=== PATIENT | female | born 1940 | race Hispanic/Latino ===

== ENCOUNTER 2016-11-24 06:45 | Day surgery (SDC) | payer MEDICARE, OTHER ==
[2016-11-18 15:26] VITALS: BMI 35.3
[2016-11-24] MEDS ORDERED: Lactated Ringer's 1,000 ML IV ONE ×2 (08:15→12:05)
[2016-11-24] MEDS ORDERED: Midazolam 2 MG/2 ML VIAL ONE (09:00)
[2016-11-24] MEDS ORDERED: Rocuronium 10 mg/ml (5 ml) ONE (09:00)
[2016-11-24] MEDS ORDERED: Propofol 10 mg/ml Inj (20 ML) ONE (09:00)
[2016-11-24] MEDS ORDERED: ePHEDrine 50 mg/ml Inj ONE (09:00)
[2016-11-24] MEDS ORDERED: Succinylcholine 200 mg/10 ml Inj IV ONE (09:00)
[2016-11-24] MEDS ORDERED: Dexamethasone 4 mg/1 ml ONE (09:38)
[2016-11-24] MEDS ORDERED: Neostigmine Methylsulfate 3mg/3ml Syringe IV ONE (10:11)
[2016-11-24] MEDS ORDERED: Bupivacaine 0.5% Inj(30mL) ONE (10:14)
[2016-11-24] MEDS ORDERED: Bupivacaine 0.5% 50 ML IJ ONE (10:25)
[2016-11-24] MEDS ORDERED: Oxycodone/Acetaminophen 5/325 mg Tab PO PRN (10:37)
[2016-11-24] MEDS ORDERED: Lactated Ringer's 1,000 ML IV SCH (10:39)
--- NOTE | 2016-11-24 10:41 | PCM.SURG1 ---
Surgeon's Initial Post Op Note - Surgeon's Notes Surgeon: Dr. Juares Hr Coordinator: Dr. Mcghee, Dr. Castro PGY2, Dr. Perez PGY1 Type of Anesthesia: General Endo Pre-Operative Diagnosis: Incarcerated Incisional Hernia Operative Findings: see operative report Post-Operative Diagnosis: same Operation Performed: Laparoscopic repair of Incarcerated Incisional Hernia, with Mesh Specimen/Specimens Removed: mesh inserted Estimated Blood Loss: EBL {In ML}: 5 Blood Products Given: N/A Drains Used: No Drains Post-Op Condition: Good Date of Surgery/Procedure: 11/24/16 Time of Surgery/Procedure: 10:41
--- NOTE | 2016-11-24 10:44 | CP.SDSHP ---
Same Day Surgery H & P - Allergies Allergies: Allergies No Known Allergies Allergy (Verified 11/24/16 07:59) - Physical Exam Vital Signs: Vital Signs 11/24/16 08:19 Temperature 98 F Pulse Rate 78 Respiratory 18 Rate Blood Pressure 147/67 O2 Sat by Pulse 96 Oximetry Short Stay Discharge - Short Stay Discharge Admitting Diagnosis/Reason for Visit: K42.9 Disposition: HOME/ ROUTINE Medications: oxyCODONE/Acetaminophen [Percocet 5/325 mg Tab] 1 tab PO Q4 PRN #20 tab PRN Reason: Pain, Moderate (4-7) Referrals: Omero Huddleston MD [Primary Care Provider] - Rob Juares MD [Staff Provider] - Follow-up: 1-2weeks Progress Note/Discharge Note with Instructions: F/U in office in 1-2weeks. No heavy lifting >10lbs for 4weeks. Take Percocet as needed for pain. Abdominal binder should be worn throughout the day. Resume home medications, regular diet, light activities.
[2016-11-24] MEDS: HYDROmorphone 0.5 mg/0.5 ml ISec IVP PRN ×2 (10:45→11:30)
[2016-11-24 12:17] VITALS: RESP 18
[2016-11-24 13:06] VITALS: PULSE 85; O2SAT 94
[2016-11-24] MEDS ORDERED: Oxycodone/Acetaminophen 5/325 mg Tab PO ONE (14:10)
[2016-11-24 14:29] VITALS: BP 140/59; TEMP 97.3
--- NOTE | 2017-01-11 10:19 | OP ---
PROCEDURE DATE: 11/24/2016 PREOPERATIVE DIAGNOSIS: Incisional hernia. POSTOPERATIVE DIAGNOSIS: Incarcerated incisional hernia. PROCEDURE: Laparoscopic repair of incisional hernia. SURGEON: Dr. Juares. ASSISTANTS: Dr. Taz Dr. . OPERATIVE FINDINGS: Multiple incarcerated incisional hernias. DESCRIPTION OF PROCEDURE: After obtaining the informed consent, the patient was taken to the operating room. After timeout was obtained, induction of general endotracheal anesthesia was obtained. The abdomen was prepped and draped in the usual manner. A 11-mm bladeless trocar was inserted in a Z-track fashion in the left subcostal region. At this point, under direct visualization, another 5-mm trocar was inserted in the anterior axillary line mid of the abdomen and another one approximately 5 cm below that. At this point, attention was carried down to the anterior abdominal wall, which showed severe adhesions. These were carefully lysed using sharp and blunt dissection using a 2-hand technique and obtaining hemostasis using hemocautery. There were multiple defects in the anterior abdominal wall, which were carefully reduced. A 20 x 25 Symbotex mesh was contoured to be placed in the anterior abdominal wall. This was done and hydrated, plain Marcaine with marker. At this point, placing a suture at 12 and 6 o'clock, the mesh was introduced into the abdominal cavity. Using an Endo Close, each suture was grasped, pulled and at this point using a observable tacking device, the mesh was tacked to the anterior abdominal wall. Once this was done and making sure the hemostasis was excellent, the sutures were removed. The pneumoperitoneum was aspirated. All trocars were removed. All incisions were closed with 5 Monocryl. Marcaine was used for infiltration. The patient tolerated the procedure very well and was transferred to the recovery room in good general status. Rob Juares MD
== END 2016-11-24 16:00 | disposition home or self-care (01) ==
LOC: H.OPSURG 06:45
PROVIDERS: ATTEND Surgery
DX: K42.9 Umbilical hernia without obstruction or gangrene (principal); E78.5 Hyperlipidemia, unspecified; E03.9 Hypothyroidism, unspecified
CPT/HCPCS: 49655; C1781; J0330; J0690; J1100; J1170; J2001; J2250; J2405; J2704; J2710; J3010; J7030; J7120